=== PATIENT | male | born 1975 | race Caucasian/White ===

== ENCOUNTER 2017-05-09 16:16 | Emergency (ER) | payer MEDICARE, OTHER, BC ==
[~2017-05-09] VITALS: Ht 177.8 cm; Wt 93.8 kg
[~2017-05-09 16:16] MED LIST: ALPR1TAB2 PO; BENZ2AMP4 PO; CITA20TA9 PO; CLOZ100T PO; LEVO25TA2 PO; LURA80TA PO; QUET100T4 PO; QUET200T4 PO; TOPI50TA35 PO; VENL150C PO
[2017-05-09] MEDS ORDERED: SODIUM CHLORIDE 0.9% 1,000 ML IV ONE (16:37)
[2017-05-09] MEDS ORDERED: HYDROmorphone 1 MG/ML, 1ML ONE (16:45)
[2017-05-09] MEDS ORDERED: ONDANSETRON 2MG/ML, 2ML ONE (16:46)
[2017-05-09 16:52] LABS: HEMATOCRIT 45.1 % (39.2-51.8); HEMOGLOBIN 15.2 g/dL (13.7-18.0)
[2017-05-09] MEDS ORDERED: HYDROmorphone 1 MG/ML, 1ML IVPush PRN (17:00)
[2017-05-09] MEDS ORDERED: SODIUM CHLORIDE 0.9% 1,000ML IVBOLUS ONE (17:00)
[2017-05-09] MEDS ORDERED: ONDANSETRON 2MG/ML, 2ML IVPush ONE (17:00)
[2017-05-09] MEDS ORDERED: SODIUM CHLORIDE FLUSH 10ML SYR IVF ONE (17:00)
[2017-05-09 17:03] LABS: ASPARTATE AMINO TRANSFERASE 30 U/L (15-37); BLOOD UREA NITROGEN 13 mg/dL (7-18)
[2017-05-09] MEDS ORDERED: OMNIPAQUE 350 MG/ML, 100ML BOTTLE ONE (18:30)
[2017-05-09] MEDS ORDERED: MAALOX/HYOSCYAMINE/LIDOCAINE 45 ML BTL ONE (19:22)
[2017-05-09] MEDS ORDERED: MAALOX/HYOSCYAMINE/LIDOCAINE 45 ML BTL PO ONE (19:30)
[2017-05-09] MEDS ORDERED: PROMETHAZINE 25 MG/ML, 1ML IM ONE (20:00)
[2017-05-09 20:13] VITALS: BP 138/87
== END 2017-05-09 20:16 | disposition home or self-care (01) ==
LOC: ED 20:10
DX: K29.00 Acute gastritis without bleeding (principal); F20.9 Schizophrenia, unspecified; I10 Essential (primary) hypertension
CPT/HCPCS: 36415; 74177; 76700; 80053; 81001; 83605; 83690; 84484; 85025; 96361; 96374; 96375; 99285; J1170; J2405; J7030; Q9967

== ENCOUNTER → 2018-08-12 | Outpatient (CLI) | payer MEDICARE, OTHER, BC | END | disposition home or self-care (01) | LOC: CFH 15:28 | PROVIDERS: ATTEND Family Medicine | DX: M51.27 Other intervertebral disc displacement, lumbosacral region (principal); M47.897 Other spondylosis, lumbosacral region; M21.372 Foot drop, left foot | CPT/HCPCS: 72148 ==